=== PATIENT | male | born 1930 | race Caucasian/White ===

== ENCOUNTER 2017-05-13 08:00 | Outpatient (CLI) | payer MEDICARE | END 2017-05-13 08:01 | disposition home or self-care (01) | LOC: BICMAMMO 08:00 | PROVIDERS: ATTEND Physician Assistant Surgical | DX: M81.0 Age-related osteoporosis without current pathological fracture (principal) ==

== ENCOUNTER 2017-05-21 07:44 | Outpatient (CLI) | payer MEDICARE | END 2017-05-21 07:45 | disposition home or self-care (01) | LOC: BICMAMMO 07:44 | PROVIDERS: ATTEND Physician Assistant Surgical | DX: Z13.820 Encounter for screening for osteoporosis (principal); M81.0 Age-related osteoporosis without current pathological fracture | CPT/HCPCS: 77080 ==

== ENCOUNTER 2017-05-26 13:47 | Outpatient (CLI) | payer MEDICARE ==
--- NOTE | 2017-05-26 16:26 | RAD ---
LUMBAR TWO VIEWS: History: Low back pain. Lumbar fracture. Comparison: 12-23-16 FINDINGS: Osseous structures of the markedly demineralized. Complete compression of the L2 vertebral body has d eveloped since the previous exam with mild retropulsion. Minimal degenerative spondylolisthesis at L4 -5 is stable. Partial compression of the T11 vertebral body is not significantly changed. There is pr ominent osteophytosis throughout the vertebral bodies and facets. Calcifications are apparent within the arterial structures. IMPRESSION: 1. Interval severe compression of the L2 vertebral body with mild retropulsion. 2. Osteoporosis. 3. Multilevel spondylosis. 4. Partial compression T11, stable. 5. Atherosclerosis. POS: [facility]
== END 2017-05-26 13:48 | disposition home or self-care (01) ==
LOC: TBSIIMAG 13:47
PROVIDERS: ATTEND Surgery
DX: M51.36 Other intervertebral disc degeneration, lumbar region (principal); M54.5 Low back pain; M47.896 Other spondylosis, lumbar region; M81.0 Age-related osteoporosis without current pathological fracture; I70.90 Unspecified atherosclerosis; S32.029D Unspecified fracture of second lumbar vertebra, subsequent encounter for fracture with routine healing
CPT/HCPCS: 72100

== ENCOUNTER 2017-10-13 13:55 | Outpatient (CLI) | payer MEDICARE | END 2017-10-13 13:56 | disposition home or self-care (01) | LOC: BICMRI 13:55 → EDSEX 14:00 | PROVIDERS: ATTEND Specialist | DX: S32.020A Wedge compression fracture of second lumbar vertebra, initial encounter for closed fracture (principal); S32.021A Stable burst fracture of second lumbar vertebra, initial encounter for closed fracture; M48.061 Spinal stenosis, lumbar region without neurogenic claudication; M99.83 Other biomechanical lesions of lumbar region; N28.1 Cyst of kidney, acquired | CPT/HCPCS: 72148 ==

== ENCOUNTER 2017-12-01 07:23 | Emergency (ER) | payer MEDICARE ==
[2017-12-01 08:54] LABS: Bilirubin Negative (Negative); Blood, Urine Trace (Negative); Clarity CLEAR (Clear); Glucose, Urine (Dipstick) Negative (Negative); Leukocyte Negative (Negative); Nitrite Negative (Negative); Protein, Urine (Dipstick) Negative (Neg-Trace); Specific Gravity, Urine 1.015 (1.002-1.036); Urobilinogen 0.2 mg/dL (0.2-1.0); pH, Urine 5.5 (5.0-9.0)
[2017-12-01 08:55] LABS: #Eosinphils 0.1 thou/uL (0.0-0.7); #Lymphocytes 0.8 thou/uL (1.20-3.40); #Monocytes 1.1 thou/uL (0.11-0.59); #Neutrophils 10.8 thou/uL (1.40-6.50); %Eosinophils 0.4 % (0.0-10.0); %Lymphocytes 6.5 % (21.0-51.0); %Monocytes 8.7 % (0.0-10.0); %Neutrophils 84.3 % (42.0-75.0); Mean Corpuscular HGB CONC 32.5 g/dL (32.0-36.0); Mean Corpuscular Hemoglobin 31.4 pg (27.0-31.0); Mean Corpuscular Volume 96.5 fL (78.0-98.0); Mean Platelet Volume 7.1 fL (7.4-10.4); Platelet Count 230 thou/uL (130-400); RBC Distribution Width 14.2 % (11.5-14.5); Red Blood Cell (RBC) Count 3.49 mill/uL (4.20-5.40); White Blood Cell (WBC) Count 12.8 thou/uL (4.8-10.8)
[2017-12-01 08:57] LABS: Bacteria/HPF None Seen HPF (None Seen); Hyaline Casts/LPF 0-3 HYALINE CAST LPF (0-3 Hyaline); Pathc Cast-AUWi Flag 0.29 (0-2.49); RBC/HPF 0-3 HPF (0-3); Squamous Epithelial 0-3 HPF (0-3); WBC/HPF 0-3 HPF (0-3)
[2017-12-01 09:11] LABS: Anion Gap 11 mmol/L (10-20); BUN (Urea Nitrogen) 31 mg/dL (9.8-20.1); Calc. Creatinine Clearance 0 mL/min (70-130); Carbon Dioxide 32 mmol/L (23-31); Chloride 101 mmol/L (98-107); Estimated GFR-MDRD 62; Glucose 86 mg/dL (83-110); Potassium 4.6 mmol/L (3.5-5.1); Sodium 139 mmol/L (136-145)
--- NOTE | 2017-12-01 09:36 | RAD ---
CHEST 1 VIEW LEFT RIBS 2 VIEWS: Date: 12/01/17 HISTORY: Fall. Cough. Pain. FINDINGS: 1 VIEW CHEST: Diminished lung volumes, presumed to be due to poor inspiratory effort. No consolidation or masses. N o pleural effusion or pneumothorax. Normal cardiac silhouette. Atherosclerosis of aorta. There is dif fuse bone demineralization. No obvious fractures. LEFT RIB SERIES: Mild bone demineralization. No definite fractures. No cortical irregularity. No periosteal reaction. There appear to be old fractures involving the inferolateral left ribs. IMPRESSION: 1. No acute cardiopulmonary process. No evidence of acute rib fractures. 2. Atherosclerosis of aorta. POS: [facility]
== END 2017-12-01 10:57 | disposition home or self-care (01) ==
LOC: ERS 07:23
DX: R07.81 Pleurodynia (principal); J45.909 Unspecified asthma, uncomplicated; F32.9 Major depressive disorder, single episode, unspecified; W19.XXXA Unspecified fall, initial encounter; Z79.899 Other long term (current) drug therapy
CPT/HCPCS: 36415; 51701; 80048; 81003; 81015; 85025; A4353

== ENCOUNTER 2017-12-02 18:05 | Outpatient (CLI) | payer MEDICARE ==
--- NOTE | 2017-12-02 18:46 | RAD ---
RADIOGRAPH CHEST 2 VIEWS: Date: 12/02/17 Time: 6:17 p.m. HISTORY: 87-year-old female with acute chest pain due to fall. COMPARISON: No recent chest radiographs available for comparison. FINDINGS: Lateral view demonstrates old compression fracture deformity of T11. Hypoinflation of the lungs. Very dense parenchymal densities in the bilateral medial lung bases, irregular with fingerlike projection s. Uncertain whether they represent calcifications or scarring. They are somewhat doubtful to represe nt acute infiltrates. No consolidation or pulmonary edema elsewhere. No pleural effusion or pneumotho rax. IMPRESSION: No definite acute cardiopulmonary findings. HELNEA [] POS: [facility]
--- NOTE | 2017-12-02 18:55 | RAD ---
RADIOGRAPH THORACIC SPINE 2 VIEWS: DATE: 12/02/17 TIME: 6:28 p.m. HISTORY: 87-year-old female with acute midback pain due to fall. COMPARISON: Lumbar spine radiograph of 05/26/17. There are no previous thoracic spine radiographs. FINDINGS: There is significant chronic loss of height of T11, unchanged since prior study. Mild anterior wedge compression deformity of T9 of indeterminate age, and no prior images of this level. Exaggerated kyph osis of the lower thoracic spine. Diffuse osteopenia. No high grade scoliosis. IMPRESSION: 1. Old compression fracture of T11. 2. Mild compression deformity of T9 of indeterminate age. 3. 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 POS: [facility]
--- NOTE | 2017-12-02 19:00 | RAD ---
RADIOGRAPH LUMBAR SPINE 2 VIEWS: DATE: 12/02/17 TIME: 6:21 p.m. COMPARISON: 05/26/17 HISTORY: 87-year-old female with acute traumatic low back pain due to fall. FINDINGS: Severe diffuse osteopenia. Exaggerated kyphosis of lower thoracic and upper lumbar spine. [employer] y exaggerated lordosis of lower lumbar spine. Old compression fracture deformity of T11, unchanged. O ld burst fracture with collapse of L2 vertebral body, almost vertebra plana. Grade I anterolisthesis of L4 on L5 due to degenerative facet disease. No major interval change overall detected. IMPRESSION: 1. Severe osteopenia. 2. Old burst fracture of L2 with collapse. 3. Old compression fracture of T11. 4. Grade I spondylolisthesis at L4-5. 5. No interval change. HELENA [] POS: [facility]
--- NOTE | 2017-12-02 19:01 | RAD ---
RADIOGRAPH LEFT RIBS 3 VIEWS: 12/02/17 HISTORY: 87-year-old female with acute left sided chest pain due to fall. FINDINGS: There is a minimally displaced and slightly angulated fracture at the lateral, distal aspect of the l eft 8th rib. No other definitely acute fracture is identified, but the severe diffuse osteopenia coul d easily mask other fractures. IMPRESSION: Acute, traumatic, minimally displaced, left lateral 8th rib fracture. POS: [facility]
== END 2017-12-02 18:06 | disposition home or self-care (01) ==
LOC: SCSRAD 18:05
PROVIDERS: ATTEND Internal Medicine
DX: R04.2 Hemoptysis (principal); S22.32XA Fracture of one rib, left side, initial encounter for closed fracture; M85.80 Other specified disorders of bone density and structure, unspecified site; M43.16 Spondylolisthesis, lumbar region; M40.204 Unspecified kyphosis, thoracic region; W19.XXXA Unspecified fall, initial encounter; Z87.81 Personal history of (healed) traumatic fracture
CPT/HCPCS: 71046; 72070; 72100